=== PATIENT | female | born 1985 | race Caucasian/White ===

== ENCOUNTER 2018-02-19 18:15 | Emergency (ER) | payer OTHER, SELFPAY ==
[2018-02-19 18:19] VITALS: BP 117/73; PULSE 84; RESP 16; TEMP 36.7; O2SAT 98
--- NOTE | 2018-02-19 18:24 | DI.RAD.S_ITS ---
PROCEDURE: XR FOOT LT MIN 3V INDICATIONS: bruising, pain. TECHNIQUE: 3 views of the foot were acquired. COMPARISON: None. FINDINGS: Bones: No fractures or dislocations. No suspicious bony lesions. Note is noted bipartite lateral sesamoid. Soft tissues: No tibiotalar joint effusion. Achilles tendon appears normal. IMPRESSION: No fracture or dislocation. If clinical symptoms persist or clinical suspicion for pathology is high, a repeat examination in 7-10 days, or advanced imaging such as CT or MRI is suggested for further evaluation. Dictated by: Remberto Liu M.D. on 02/19/2018 at 18:58 Approved by: Remberto Liu M.D. on 02/19/2018 at 18:59
--- NOTE | 2018-02-19 21:11 | ED.LOWEXIN ---
HPI - Extremity Injury (Lower) <CLARISA Carlin - Last Filed: 02/19/18 22:24> General Chief Complaint: Extremity Injury, Lower Stated Complaint: LT FOOT INJURY Time Seen by Provider: 02/19/18 19:07 Source: patient Mode of arrival: ambulatory Limitations: no limitations History of Present Illness HPI Narrative: 32-year-old healthy female visiting day smoker for complaint of pain to her left foot. 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 She reports pain across the dorsal aspect of her left foot. she is able to ambulate although she states that is painful. She denies any other injuries. She denies any stressors or relievers of her discomfort. No other concerns or complaints. MD complaint: foot injury Related Data Allergies Allergy/AdvReac Type Severity Reaction Status Date / Time No Known Drug Allergies Allergy Verified 02/19/18 18:19 Review of Systems <CLARISA Carlin - Last Filed: 02/19/18 22:24> Constitutional Denies chills, Denies fever(s), Denies lethargy and Denies weakness Eyes Denies change in vision, Denies eye discharge, Denies irritation and Denies loss of vision ENT Ears, Nose, Mouth, and Throat: Denies change in voice, Denies neck pain and Denies sore throat Cardiovascular Denies chest pain, Denies irregular heart rhythm, Denies lightheadedness, Denies palpitations, Denies dyspnea, Denies dyspnea on exertion and Denies orthopnea Respiratory Denies cough, Denies dyspnea, Denies dyspnea on exertion and Denies wheezing Gastrointestinal Gastrointestinal: Denies abdominal pain, Denies change in bowel habits, Denies diarrhea, Denies nausea and Denies vomiting Genitourinary Denies hematuria, Denies flank pain, Denies urinary incontinence and Denies urinary urgency Musculoskeletal Denies neck pain Comments: Left foot pain Integumentary/Breasts Denies pruritus, Denies erythema, Denies rash and Denies wounds Neurologic Denies confusion, Denies loss of vision and Denies weakness Psychiatric Denies anxiety, Denies confusion, Denies depression, Denies homicidal ideation and Denies suicidal ideation Endocrine Denies palpitations Hematologic/Lymphatic Denies easy bruising Allergic/Immunologic Denies wheezing Exam <CLARISA Carlin Last Filed: 02/19/18 22:24> Initial Vital Signs Initial Vital Signs: Vital Signs Temperature 98.0 F 02/19/18 18:19 Pulse Rate 84 02/19/18 18:19 Respiratory Rate 16 02/19/18 18:19 Blood Pressure 117/73 02/19/18 18:19 Pulse Oximetry 98 02/19/18 18:19 Const General: cooperative and well developed Nutritional Appearance: well nourished Orientation: alert, awake, oriented x3 and not confused [facility] Mouth: oral mucosae normal and moist mucous membranes Eyes Conjunctivae: conjunctivae normal Sclera: sclerae normal Pupils: PERRL EOM: EOM intact bilaterally Resp Effort & Inspection: normal respiratory effort, able to speak in complete sentences, no respiratory distress and no use of accessory muscles Auscultation: clear to auscultation bilaterally, no rales, no rhonchi and no wheezes Cardio Rate: regular rate Rhythm: regular rhythm Heart Sounds: no click, no gallops, no murmurs and no rubs Pulses: normal peripheral pulses Skin General: no rashes or lesions noted, No jaundice and No petechiae Neuro General: alert, oriented x3, gait normal and no focal motor deficits Speech: speech normal Extrem Other: Left foot with mild erythema to the dorsal aspect of the foot. Slight swelling. No deformities. Distal sensation is intact. Distal range of motion is intact. Distal pulses are intact <Sourav Araujo DO - Last Filed: 02/20/18 01:47> Initial Vital Signs Initial Vital Signs: Vital Signs Temperature 98.0 F 02/19/18 18:19 Pulse Rate 84 02/19/18 18:19 Respiratory Rate 16 02/19/18 18:19 Blood Pressure 117/73 02/19/18 18:19 Pulse Oximetry 98 02/19/18 18:19 Course <CLARISA Carlin - Last Filed: 02/19/18 22:24> Orders Ordered: ED Orders 02/19/18 18:24 XR foot LT min 3V Stat Vital Signs - 8 hr 02/19/18 18:19 02/19/18 21:50 Temperature 98.0 F Pulse Rate 84 64 Respiratory Rate 16 18 Blood Pressure 117/73 Blood Pressure [Right Arm] 90/77 Pulse Oximetry 98 98 <Sourav Araujo DO - Last Filed: 01/11/19 01:47> Orders Ordered: ED Orders 02/19/18 18:24 XR foot LT min 3V Stat Vital Signs - 8 hr 02/19/18 18:19 02/19/18 21:50 Temperature 98.0 F Pulse Rate 84 64 Respiratory Rate 16 18 Blood Pressure 117/73 Blood Pressure [Right Arm] 90/77 Pulse Oximetry 98 98 MDM - Extremity Injury (Lower) <CLARISA Carlin - Last Filed: 02/19/18 22:24> Imaging Data Left foot : Radiologist's impression: [address] [address] XRay Report Signed Patient: LUIGI DURAN MR#: [id number] : 1985 Acct:[id number] Age/Sex: 32 / F Date of Service: 02/19/18 Loc: ED Accession Number: [id number] Procedure: XR foot LT min 3V Ordering Provider: Sourav Araujo D.O. PROCEDURE: XR FOOT LT MIN 3V INDICATIONS: bruising, pain. TECHNIQUE: 3 views of the foot were acquired. COMPARISON: None. FINDINGS: Bones: No fractures or dislocations. No suspicious bony lesions. Note is noted bipartite lateral sesamoid. Soft tissues: No tibiotalar joint effusion. Achilles tendon appears normal. IMPRESSION: No fracture or dislocation. If clinical symptoms persist or clinical suspicion for pathology is high, a repeat examination in 7-10 days, or advanced imaging such as CT or MRI is suggested for further evaluation. Dictated by: Remberto Liu M.D. on 02/19/2018 at 18:58 Approved by: Remberto Liu M.D. on 02/19/2018 at 18:59 [facility] Narrative Medical decision making narrative: X-ray the left foot was obtained was negative for any acute fractures or findings. Signs and symptoms presents as contusion the left foot. [id number] Tylenol or Motrin as needed for discomfort. Ice and elevation of with any swelling. She is placed in a postop shoe for comfort and support. Follow up with primary care provider next week for re-evaluation. If continued pain recommend repeat x-ray to rule out occult fracture. Return emergency room for any worsening symptoms. Discharge Plan Departure Patient Disposition: Home Clinical Impression: Contusion of ankle or foot, left Discharge Date/Time: 02/19/18 22:00 Interventions: ED Discharge Assessment Last Done: 02/19/18 21:59 Instructions: DI for Contusion Activity Restrictions/Additional Instructions: X-ray the left foot was obtained was negative for any acute fractures or findings. Signs and symptoms presents as contusion the left foot. [id number] Tylenol or Motrin as needed for discomfort. Ice and elevation of with any swelling. You are placed in a postop shoe for comfort and support. Follow up with primary care provider next week for re-evaluation. If continued pain recommend repeat x-ray to rule out occult fracture. Return emergency room for any worsening symptoms. Referrals: [facility] [Provider Group] Stand Alone Forms: Work Release Note <Sourav Araujo DO - Last Filed: 02/20/18 01:47> Cosign ED Attending John Attestation: I was immediately available in the department for consultation. Documentation has been reviewed. I agree with assessment and plan.
--- NOTE | 2018-02-19 21:40 | ED_ITS ---
HPI - Extremity Injury (Lower) <CLARISA Carlin - Last Filed: 02/19/18 22:24> General Chief Complaint: Extremity Injury, Lower Stated Complaint: LT FOOT INJURY Time Seen by Provider: 02/19/18 19:07 Source: patient Mode of arrival: ambulatory Limitations: no limitations History of Present Illness HPI Narrative: 32-year-old healthy female visiting day smoker for complaint of pain to her left foot. 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 She reports pain across the dorsal aspect of her left foot. she is able to ambulate although she states that is painful. She denies any other injuries. She denies any stressors or relievers of her discomfort. No other concerns or complaints. MD complaint: foot injury Related Data Allergies Allergy/AdvReac Type Severity Reaction Status Date / Time No Known Drug Allergies Allergy Verified 02/19/18 18:19 Review of Systems <CLARISA Carlin - Last Filed: 02/19/18 22:24> Constitutional Denies chills, Denies fever(s), Denies lethargy and Denies weakness Eyes Denies change in vision, Denies eye discharge, Denies irritation and Denies loss of vision ENT Ears, Nose, Mouth, and Throat: Denies change in voice, Denies neck pain and Denies sore throat Cardiovascular Denies chest pain, Denies irregular heart rhythm, Denies lightheadedness, Denies palpitations, Denies dyspnea, Denies dyspnea on exertion and Denies orthopnea Respiratory Denies cough, Denies dyspnea, Denies dyspnea on exertion and Denies wheezing Gastrointestinal Gastrointestinal: Denies abdominal pain, Denies change in bowel habits, Denies diarrhea, Denies nausea and Denies vomiting Genitourinary Denies hematuria, Denies flank pain, Denies urinary incontinence and Denies urinary urgency Musculoskeletal Denies neck pain Comments: Left foot pain Integumentary/Breasts Denies pruritus, Denies erythema, Denies rash and Denies wounds Neurologic Denies confusion, Denies loss of vision and Denies weakness Psychiatric Denies anxiety, Denies confusion, Denies depression, Denies homicidal ideation and Denies suicidal ideation Endocrine Denies palpitations Hematologic/Lymphatic Denies easy bruising Allergic/Immunologic Denies wheezing Exam <CLARISA Carlin Last Filed: 02/19/18 22:24> Initial Vital Signs Initial Vital Signs: Vital Signs Temperature 98.0 F 02/19/18 18:19 Pulse Rate 84 02/19/18 18:19 Respiratory Rate 16 02/19/18 18:19 Blood Pressure 117/73 02/19/18 18:19 Pulse Oximetry 98 02/19/18 18:19 Const General: cooperative and well developed Nutritional Appearance: well nourished Orientation: alert, awake, oriented x3 and not confused [facility] Mouth: oral mucosae normal and moist mucous membranes Eyes Conjunctivae: conjunctivae normal Sclera: sclerae normal Pupils: PERRL EOM: EOM intact bilaterally Resp Effort & Inspection: normal respiratory effort, able to speak in complete sentences, no respiratory distress and no use of accessory muscles Auscultation: clear to auscultation bilaterally, no rales, no rhonchi and no wheezes Cardio Rate: regular rate Rhythm: regular rhythm Heart Sounds: no click, no gallops, no murmurs and no rubs Pulses: normal peripheral pulses Skin General: no rashes or lesions noted, No jaundice and No petechiae Neuro General: alert, oriented x3, gait normal and no focal motor deficits Speech: speech normal Extrem Other: Left foot with mild erythema to the dorsal aspect of the foot. Slight swelling. No deformities. Distal sensation is intact. Distal range of motion is intact. Distal pulses are intact <Sourav Araujo DO - Last Filed: 02/20/18 01:47> Initial Vital Signs Initial Vital Signs: Vital Signs Temperature 98.0 F 02/19/18 18:19 Pulse Rate 84 02/19/18 18:19 Respiratory Rate 16 02/19/18 18:19 Blood Pressure 117/73 02/19/18 18:19 Pulse Oximetry 98 02/19/18 18:19 Course <CLARISA Carlin - Last Filed: 02/19/18 22:24> Orders Ordered: ED Orders 02/19/18 18:24 XR foot LT min 3V Stat Vital Signs - 8 hr 02/19/18 18:19 02/19/18 21:50 Temperature 98.0 F Pulse Rate 84 64 Respiratory Rate 16 18 Blood Pressure 117/73 Blood Pressure [Right Arm] 90/77 Pulse Oximetry 98 98 <Sourav Araujo DO - Last Filed: 01/11/19 01:47> Orders Ordered: ED Orders 02/19/18 18:24 XR foot LT min 3V Stat Vital Signs - 8 hr 02/19/18 18:19 02/19/18 21:50 Temperature 98.0 F Pulse Rate 84 64 Respiratory Rate 16 18 Blood Pressure 117/73 Blood Pressure [Right Arm] 90/77 Pulse Oximetry 98 98 MDM - Extremity Injury (Lower) <CLARISA Carlin - Last Filed: 02/19/18 22:24> Imaging Data Left foot : Radiologist's impression: [address] [address] XRay Report Signed Patient: LUIGI DURAN MR#: [id number] : 1985 Acct:[id number] Age/Sex: 32 / F Date of Service: 02/19/18 Loc: ED Accession Number: [id number] Procedure: XR foot LT min 3V Ordering Provider: Sourav Araujo D.O. PROCEDURE: XR FOOT LT MIN 3V INDICATIONS: bruising, pain. TECHNIQUE: 3 views of the foot were acquired. COMPARISON: None. FINDINGS: Bones: No fractures or dislocations. No suspicious bony lesions. Note is noted bipartite lateral sesamoid. Soft tissues: No tibiotalar joint effusion. Achilles tendon appears normal. IMPRESSION: No fracture or dislocation. If clinical symptoms persist or clinical suspicion for pathology is high, a repeat examination in 7-10 days, or advanced imaging such as CT or MRI is suggested for further evaluation. Dictated by: Remberto Liu M.D. on 02/19/2018 at 18:58 Approved by: Remberto Liu M.D. on 02/19/2018 at 18:59 [facility] Narrative Medical decision making narrative: X-ray the left foot was obtained was negative for any acute fractures or findings. Signs and symptoms presents as contusion the left foot. [id number] Tylenol or Motrin as needed for discomfort. Ice and elevation of with any swelling. She is placed in a postop shoe for comfort and support. Follow up with primary care provider next week for re-evaluation. If continued pain recommend repeat x-ray to rule out occult fracture. Return emergency room for any worsening symptoms. Discharge Plan Departure Patient Disposition: Home Clinical Impression: Contusion of ankle or foot, left Discharge Date/Time: 02/19/18 22:00 Interventions: ED Discharge Assessment Last Done: 02/19/18 21:59 Instructions: DI for Contusion Activity Restrictions/Additional Instructions: X-ray the left foot was obtained was negative for any acute fractures or findings. Signs and symptoms presents as contusion the left foot. Over-the- counter Tylenol or Motrin as needed for discomfort. Ice and elevation of with any swelling. You are placed in a postop shoe for comfort and support. Follow up with primary care provider next week for re-evaluation. If continued pain recommend repeat x-ray to rule out occult fracture. Return emergency room for any worsening symptoms. Referrals: [facility] [Provider Group] Stand Alone Forms: Work Release Note <Sourav Araujo DO - Last Filed: 02/20/18 01:47> Cosign ED Attending John Attestation: I was immediately available in the department for consultation. Documentation has been reviewed. I agree with assessment and plan.
[2018-02-19 21:50] VITALS: BP 90/77; PULSE 64; RESP 18; O2SAT 98
--- NOTE | 2018-02-19 21:59 | PC.NURSE ---
Done from triage
== END 2018-02-19 22:00 | disposition home or self-care (01) ==
PROVIDERS: Emergency Provider Nurse Practitioner Family
DX: S90.02XA Contusion of left ankle, initial encounter (principal); W23.0XXA Caught, crushed, jammed, or pinched between moving objects, initial encounter
CPT/HCPCS: 73630; 99282; 99283